=== PATIENT | female | born 2000 | race Caucasian/White ===

== ENCOUNTER 2022-10-23 02:07 | Emergency (ER) | payer OTHER ==
--- OUTSIDE RECORDS SUMMARY | 2022-10-23 02:20 | XMS REPORT | Continuity of Care Document ---
:2000 Author Organization [facility] t Address [address] [place] [address]. [address] [place] [address] Care Team Providers Name Role Phone KATE BAUMAN Primary Care Physician Unavailable Sera Attending Clinician Unavailable Doctor Unassigned, [place] Attending Clinician Unavailable KATE BAUMAN Attending Clinician Unavailable Kate Kennedy Attending Clinician Visit, Kerrie Nurse Attending Clinician Unavailable Jeronimo, Kerrie Attending Clinician Unavailable Estefania Nicholson Attending Clinician G_Pappas Admitting Clinician Unavailable Payers Payer Name Policy Type Policy Number Effective Date Expiration Date Marjorie luis [facility] [id number] 2016 [facility] 00:00:00 (MEDICAID HMO) [place]ICAID [place] [id number] 2021 00:00:00 MEDICAID PENDING PENDING 2021 00:00:00 Problems Condition Condition Condition Status Onset Resolution Last Treating Co mments Source Name Details Category Date Date Treatment Clinician Date - - Problem Active M [facility] induced induced 8-02 da hypertensi Hypertensi 00:00: Me dical on on 00 Group 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 Address in PP Maternal Maternal Disease Active 2020-05 Overview: Un cindy rubella rubella 2-30 Formattin ity o f with with 00:00: g of this [place] delivery delivery 00 note Medica l might be Branch different from the original. Address in PP Supervisio Supervisio Disease Active 2020-05 U nivers n of high n of high 2-29 ity of risk risk 00:00: [place] , , 00 Me dical antepartum antepartum Br anch Primigravi Primigravi Disease Active 2020-05 U nivers da in da in 2-29 ity of first first 00:00: [place] trimester trimester 00 [facility] Branch Obesity in Obesity in Disease Active 2020-05 U nivers 2- ity of 00:00: [place] 00 Medical Branch BMI BMI Disease Active 2020-05 Univers 40.0-44.9, 40.0-44.9, 2-29 it y of adult adult 00:00: [place] 00 Medical Branch Vitamin D Vitamin D Disease Active Uni vers deficiency deficiency 5-17 it y of 00:00: [place] 00 Medical Branch Low serum Low serum Disease Active Uni vers IgA for IgA for 5-17 ity of age age 00:00: [place] 00 Medical Branch Pre-existi Pre-existi Problem Active [facility] ng type 2 ng Type 2 da diabetes Diabetes Medica l mellitus Mellitus Group in in Rubella Rubella Problem Active [place] non-immune Non-immune da Medical Group 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 Allergies, Adverse Reactions, Alerts Allergy Allergy Status Severity Reaction(s) Onset Inactive Treating Comm ents Source Name Type Date Date Clinician PENICILL DRUG Active Med Rash Univers IN INGREDI 2- ity of 00:00: [place] 00 Medical Branch Penicill Propensi Active Rash Univer s in ty to 2-11 ity of adverse 00:00: [place] reaction 00 Medical s Branch PENICILL Allergy Active Hives [place] INS to da substanc Medical e Group Social History Social Habit Start Date Stop Date Quantity Comments Source ASSERTION 2021-03-31 [facility] 00:00:00 [facility] Branch Exposure to Not sure [facility] SARS-CoV-2 (event) Medica l Branch Alcohol intake 2021-06-02 2021-06-02 0 /d [facility] 00:00:00 00:00:00 Medical Branch Tobacco use and 2021-05-10 2021-05-10 Never used [facility] exposure 00:00:00 00:00:00 Medical Branch Sex Assigned At 2000 2001 [facility] 00:00:00 00:00:00 Medical Branch Smoking Status Start Date Stop Date Source Never Smoker [facility] Medications Ordered Filled Start Stop Current Ordering Indication Dosage Frequency Signature Comments Components Source Medication Medication Date Date Medication? Clinician (SIG) Name Name No known No Univers medications 1-21 ity of 10:05: [place] 12 Medical Branch Yes [id number] 1{packe Take 1 Univers vit 1-21 t} Packet by ity of 33-iron-fol 00:00: mouth [place] ic-dha 00 daily. Medical (SELECT-OB Branch + DHA) 29 mg iron-1 mg -250 mg combo pack Yes [id number] 1{packe Take 1 Univers vit 1-21 t} Packet by ity of 33-iron-fol 00:00: mouth [place] ic-dha 00 daily. Medical (SELECT-OB Branch + DHA) 29 mg iron-1 mg -250 mg combo pack Blood-Gluco Yes [id number] Use as Univers se Meter 1-04 directed ity of (FREESTYLE 00:00: [place] FREEDOM 00 Medical LITE) Kit Branch blood sugar Yes [id number] Use as Univers diagnostic 1-04 directed ity o f (FREESTYLE 00:00: [place] LITE 00 Medical STRIPS) Branch strip lancets 17 Yes [id number] Use as U nivers gauge Misc 1-04 directed ity o f 00:00: [place] 00 Medical Branch Blood-Gluco Yes [id number] Use as Univers se Meter 1-04 directed ity of (FREESTYLE 00:00: [place] FREEDOM 00 Medical LITE) Kit Branch blood sugar Yes [id number] Use as Univers diagnostic 1-04 directed ity o f (FREESTYLE 00:00: [place] LITE 00 Medical STRIPS) Branch strip lancets 17 Yes [id number] Use as U nivers gauge Misc 1-04 directed ity o f 00:00: [place] 00 Medical Branch Blood-Gluco Yes [id number] Use as Univers se Meter 1-04 directed ity of (FREESTYLE 00:00: [place] FREEDOM 00 Medical LITE) Kit Branch blood sugar Yes [id number] Use as Univers diagnostic 1-04 directed ity o f (FREESTYLE 00:00: [place] LITE 00 Medical STRIPS) Branch strip lancets 17 Yes [id number] Use as U nivers gauge Misc 1-04 directed ity o f 00:00: [place] Medical Branch Blood-Gluco Yes [id number] Use as Univers se Meter 1- directed ity of (FREESTYLE 00:00: [place] FREEDOM 00 Medical LITE) Kit Branch blood sugar Yes [id number] Use as Univers diagnostic 05-16 directed ity o f (FREESTYLE 00:00: [place] LITE 00 Medical STRIPS) Branch strip lancets 17 Yes [id number] Use as U nivers gauge Misc 05-16 directed ity o f 00:00: [place] Medical Branch Blood-Gluco Yes [id number] Use as Univers se Meter 05-16 directed ity of (FREESTYLE 00:00: [place] FREEDOM 00 Medical LITE) Kit Branch blood sugar Yes [id number] Use as Univers diagnostic 05-16 directed ity o f (FREESTYLE 00:00: [place] LITE 00 Medical STRIPS) Branch strip lancets Yes [id number] Use as U nivers gauge Misc 05-16 directed ity o f 00:00: [place] Medical Branch acetaminoph acetaminoph No acetaminop [place] en 300 en 300 hen 300 da mg-codeine mg-codeine mg-codeine Medical 30 mg 30 mg 30 mg Group tablet TAKE tablet TAKE tablet 1 TO 2 1 TO 2 TAKE 1 TO TABLETS BY TABLETS BY 2 TABLETS MOUTH EVERY MOUTH EVERY BY MOUTH 6 HOURS 6 HOURS EVERY 6 NEEDED FOR NEEDED FOR HOURS PAIN PAIN NEEDED FOR PAIN Ferate 240 Ferate 240 No Ferate 240 [place] mg (27 mg mg (27 mg mg (27 mg da iron) iron) iron) Medical tablet TAKE tablet TAKE tablet Group 1 TABLET BY 1 TABLET BY TAKE 1 MOUTH EVERY MOUTH EVERY TABLET BY DAY DAY MOUTH EVERY DAY FreeStyle FreeStyle No FreeStyle [place] Lancets 28 Lancets 28 Lancets 28 da gauge CHECK gauge CHECK gauge Medical BLOOD BLOOD CHECK Group GLUCOSE GLUCOSE BLOOD FOUR TIMES FOUR TIMES GLUCOSE DAILY DAILY FOUR TIMES DAILY FreeStyle FreeStyle No FreeStyle [place] Lite Meter Lite Meter Lite Meter da kit USE kit USE kit USE Medical DIRECTED DIRECTED DIRECTED Vikki up FreeStyle FreeStyle No FreeStyle [place] Lite Strips Lite Strips Lite d a CHECK BLOOD CHECK BLOOD Strips Medical GLUCOSE GLUCOSE CHECK Group FOUR TIMES FOUR TIMES BLOOD DAILY DAILY GLUCOSE FOUR TIMES DAILY ibuprofen ibuprofen No ibuprofen [place] 800 mg 800 mg 800 mg da tablet TAKE tablet TAKE tablet Medical 1 TABLET BY 1 TABLET BY TAKE 1 Group MOUTH EVERY MOUTH EVERY TABLET BY 6 HOURS 6 HOURS MOUTH NEEDED FOR NEEDED FOR EVERY 6 PAIN PAIN HOURS NEEDED FOR PAIN Prena1 Chew Prena1 Chew No Prena1 [place] Chew da Medical Group Immunizations Ordered Filled Immunization Date Status Comments [facility] e Immunization Name Name Influenza Virus 2017-04-22 Completed Universit y of Vaccine Quad IM 3+ 00:00:00 [facility] Influenza Virus 2017-04-22 Completed Universit y of Vaccine Quad IM 3+ 00:00:00 [facility] Influenza Virus 2017-04-22 Completed Universit y of Vaccine Quad IM 3+ 00:00:00 [facility] Influenza Virus 2017-04-22 Completed Universit y of Vaccine Quad IM 3+ 00:00:00 [facility] Influenza Virus 2017-04-22 Completed Universit y of Vaccine Quad IM 3+ 00:00:00 [facility] Influenza Virus 2017-04-22 Completed Universit y of Vaccine Quad IM 3+ 00:00:00 [facility] Influenza Virus 2016-02-08 Completed Universit y of Vaccine Quad IM 3+ 00:00:00 [facility] Influenza Virus 2016-02-08 Completed Universit y of Vaccine Quad IM 3+ 00:00:00 [facility] Influenza Virus 2016-02-08 Completed Universit y of Vaccine Quad IM 3+ 00:00:00 [facility] Influenza Virus 2016-02-08 Completed Universit y of Vaccine Quad IM 3+ 00:00:00 [facility] Influenza Virus 2016-02-08 Completed Universit y of Vaccine Quad IM 3+ 00:00:00 [facility] Influenza Virus 2016-02-08 Completed Universit y of Vaccine Quad IM 3+ 00:00:00 [facility] Vital Signs Vital Name Observation Time Observation Value Comments Source BP Diastolic 2022-01-05 00:00:00 99 mm[Hg] [facility] Height 2022-01-05 00:00:00 67 [in_i] [facility] BMI (Body Mass 2022-01-05 00:00:00 37.2 kg/m2 [facility] Index) Group BP Systolic 2022-01-05 00:00:00 141 mm[Hg] [facility] Body Weight 2022-01-05 00:00:00 237.5 [lb_av] [facility] BP Diastolic 2021-12-12 00:00:00 95 mm[Hg] [facility] Height 2021-12-12 00:00:00 67 [in_i] [facility] BMI (Body Mass 2021-12-12 00:00:00 41 kg/m2 [facility] Medical Index) Group BP Systolic 2021-12-12 00:00:00 152 mm[Hg] [facility] Body Weight 2021-12-12 00:00:00 261.8 [lb_av] [facility] BP Diastolic 2021-12-05 00:00:00 90 mm[Hg] [facility] Height 2021-12-05 00:00:00 67 [in_i] [facility] BMI (Body Mass 2021-12-05 00:00:00 40.7 kg/m2 [facility] Medical Index) Group BP Systolic 2021-12-05 00:00:00 141 mm[Hg] [facility] Body Weight 2021-12-05 00:00:00 260.1 [lb_av] [facility] BP Diastolic 2021-11-21 00:00:00 90 mm[Hg] [facility] Height 2021-11-21 00:00:00 67 [in_i] [facility] BP Systolic 2021-11-21 00:00:00 139 mm[Hg] [facility] Body Weight 2021-11-21 00:00:00 225.4 [lb_av] [facility] BP Diastolic 2021-11-07 00:00:00 93 mm[Hg] [facility] Height 2021-11-07 00:00:00 67 [in_i] [facility] BP Systolic 2021-11-07 00:00:00 137 mm[Hg] [facility] BP Diastolic 2021-10-10 00:00:00 76 mm[Hg] [facility] Height 2021-10-10 00:00:00 67 [in_i] [facility] BMI (Body Mass 2021-10-10 00:00:00 39.6 kg/m2 [facility] apprentice painter hand Medical Index) Group BP Systolic 2021-10-10 00:00:00 123 mm[Hg] [facility] Body Weight 2021-10-10 00:00:00 253 [lb_av] [facility] BP Diastolic 2021-09-12 00:00:00 83 mm[Hg] [facility] Height 2021-09-12 00:00:00 67 [in_i] [facility] BMI (Body Mass 2021-09-12 00:00:00 39.3 kg/m2 [facility] apprentice painter hand Medical Index) Group BP Systolic 2021-09-12 00:00:00 131 mm[Hg] [facility] Body Weight 2021-09-12 00:00:00 251 [lb_av] [facility] BP Diastolic 2021-08-15 00:00:00 86 mm[Hg] [facility] Height 2021-08-15 00:00:00 67 [in_i] [facility] BMI (Body Mass 2021-08-15 00:00:00 39.6 kg/m2 [facility] apprentice painter hand Medical Index) Group BP Systolic 2021-08-15 00:00:00 141 mm[Hg] [facility] Body Weight 2021-08-15 00:00:00 252.8 [lb_av] [facility] Height 2021-07-27 00:00:00 67 [in_i] [facility] BMI (Body Mass 2021-07-27 00:00:00 39.5 kg/m2 [facility] apprentice painter hand Medical Index) Group Body Weight 2021-07-27 00:00:00 252.2 [lb_av] [facility] BP Diastolic 2021-07-18 00:00:00 81 mm[Hg] [facility] Height 2021-07-18 00:00:00 67 [in_i] [facility] BMI (Body Mass 2021-07-18 00:00:00 40.1 kg/m2 [facility] apprentice painter hand Medical Index) Group BP Systolic 2021-07-18 00:00:00 137 mm[Hg] [facility] Body Weight 2021-07-18 00:00:00 256.2 [lb_av] [facility] BP Diastolic 2021-07-06 00:00:00 87 mm[Hg] [facility] Height 2021-07-06 00:00:00 67 [in_i] [facility] BMI (Body Mass 2021-07-06 00:00:00 40.2 kg/m2 [facility] apprentice painter hand Medical Index) Group BP Systolic 2021-07-06 00:00:00 142 mm[Hg] [facility] Body Weight 2021-07-06 00:00:00 256.7 [lb_av] [facility] Systolic blood 2021-06-02 15:04:00 118 mm[Hg] Univer sity of pressure [facility] Diastolic blood 2021-06-02 15:04:00 78 mm[Hg] Unive rsity of pressure [facility] Heart rate 2021-06-02 15:04:00 90 /min [facility] Body temperature 2021-06-02 15:04:00 36.11 [facility] 2021-06-02 15:04:00 16 /min [facility] height 2021-06-02 15:04:00 170.2 cm [facility] Body weight 2021-06-02 15:04:00 119.477 kg [facility] BMI 2021-06-02 15:04:00 41.25 kg/m2 [facility] Body mass index 2021-06-02 15:04:00 98.51 % Unive rsity of (BMI) [Percentile] [facility] [place] Per age and sex Branch Systolic blood 2021-05-19 15:53:00 138 mm[Hg] Univer sity of pressure [facility] Diastolic blood 2021-05-19 15:53:00 82 mm[Hg] Unive rsity of pressure [facility] Heart rate 2021-05-19 15:53:00 104 /min [facility] Body temperature 2021-05-19 15:53:00 36.11 Laura [facility] Respiratory rate 2021-05-19 15:53:00 18 /min [facility] Body height 2021-05-19 15:53:00 170.2 cm [facility] Body weight 2021-05-19 15:53:00 119.523 kg [facility] BMI 2021-05-19 15:53:00 41.27 kg/m2 [facility] Body mass index 2021-05-19 15:53:00 98.52 % [facility] (BMI) [Percentile] [facility] [place] Per age and sex Branch Procedures Procedure Date / Time Performing Clinician Source Performed US(FBP)W/0 NON STRESS 2021-12[facility]12 [facility], [facility], limited 2021-12-05 00:00:00 [facility] US, obstetric, limited 2021-11-07 00:00:00 [facility] ULTRASOUND REPEAT 2021-10-10 00:00:00 [facility] US, obstetric, limited 2021-09-12 00:00:00 [facility] ULTRASOUND, 2021-08-15 00:00:00 [facility] Medical UTERUS REAL TIME WITH Group IMAGE DOC, AND MATERNAL EVAL PLUS DETAILED ANATOMIC EXAMINATION, TRANSABDOMINAL APPROACH; SINGLE OR FIRST GESTATION US, obstetric, limited 2021-07-27 00:00:00 [facility] US, obstetric, limited 2021-07-06 00:00:00 [facility] AUTHORIZATION FOR RELEASE 2021-06-26 06:01:00 Doctor Unassigned, [facility] [place] [facility] POCT URINALYSIS 2021-06-02 15:05:00 Kate Bauman [facility] 3 HR GLUCOSE TOLERANCE 2021-05-15 17:15:00 [facility] GLUCOSE TOLER[facility] 2021-05-15 16:23:00 Kate Bauman [facility] [place] TEST Medical Branch 1 HR GLUCOSE TOLERANCE 2021-05-15 15:15:00 [facility] GLU[facility]SE FAST[facility] 2021-05-15 14:14:00 Kate Bauman [facility] 3 HR GLUCOSE TOLERANCE 2021-05-15 14:14:00 [facility] Plan of Care Planned Activity Planned Date Details Comments Source Diagnostic Test 2022-01-05 urinalysis, [facility] Me dical Pending 00:00:00 dipstick [code = Group urinalysis, dipstick] Encounters Start End Encounter Admission Attending Care Care Encounter Source Date/Time Date/Time Type Type Clinicians Facility Department ID 2022-01-05 2022-01-05 Outpatient G_Pappas MM[facility] MMG [id number] [place] 00:00:00 00:00:00 0826 Medical Group 2022-01-05 2022-01-05 Derrick RODRIGUEZ [place] - [id number] Jeff hansengoshivani 00:00:00 00:00:00 Discovery yuriy Rossi MD: [address] [place] [phone] , Ph. [phone] 2021-12-18 2021-12-18 Outpatient G_Pappas MMG MMG [id number] [place] 00:00:00 00:00:00 0808 Medical Group 2021-12-12 2021-12-12 Outpatient G_Pappas MMG MMG [id number] [place] 00:00:00 00:00:00 0802 [facility] Group 2021-12-12 2021-12-12 Derrick RODRIGUEZ [place] - [id number] Jeff atagoshivani 00:00:00 00:00:00 Discovery yuriy Rossi MD: [address] [place] [phone] , Ph. [phone] 2021-12-05 2021-12-05 Outpatient G_Pappas MMG MMG [id number] [place] 02:04:00 02:04:00 0726 [facility] Medical Group 2021-12-05 2021-12-05 Derrick RODRIGUEZ [place] - [id number] M at[facility]or 00:00:00 00:00:00 Discovery yuriy Rossi MD: [address] [place] [phone] , Ph. [phone] 2021-11-21 2021-11-21 Outpatient G_Pappas MM MM [id number] [place] 03:11:00 03:11:00 0712 [facility] 2021-11-21 2021-11-21 Derrick HERRMANN [place] - [id number] M at[facility] 00:00:00 00:00:00 Discovery yuriy Rossi MD: [address] [place] [phone] , Ph. [phone] 2021-11-07 2021-11-07 Outpatient G_Pappas MM MM [id number] [place] 02:20:00 02:20:00 0628 [facility] 2021-11-07 2021-11-07 Outpatient G_Pappas MMG MMG [id number] [place] 02:20:00 02:20:00 0701 [facility] 2021-11-07 2021-11-07 Derrick HERRMANN [place] - [id number] M at[place]or 00:00:00 00:00:00 Discovery yuriy Rossi MD: [address] [place] [phone] , Ph. [phone] 2021-10-10 2021-10-10 [place] [id number] [place] 02:59:00 02:59:00 0531 [facility] 2021-10-10 2021-10-10 Derrick HERRMANN [place] - [id number] M at[facility]or 00:00:00 00:00:00 Discovery yuriy Rossi MD: [address] [place] [phone] , Ph. [phone] 2021-10-05 2021-10-05 Outpatient G_Pappas MMG MMG [id number] [place] 03:57:00 03:57:00 0526 [facility] 2021-09-12 2021-09-12 Outpatient G_Pappas MMG MMG [id number] [place] 10:54:00 10:54:00 0503 [facility] 2021-09-12 2021-09-12 Outpatient G_Pappas MMG MMG [id number] [place] 10:54:00 10:54:00 0504 [facility] 2021-09-12 2021-09-12 Derrick [facility] [place] - [id number] M atagor 00:00:00 00:00:00 Discovery yuriy Rossi MD: [address] [place] [phone] , Ph. [phone] 2021-09-06 2021-09-06 [place] [id number] [place] 10:58:00 10:58:00 0427 Medical Group 2021-08-15 2021-08-15 [place] [id number] [place] 10:32:00 10:32:00 0405 Medical Group 2021-08-15 2021-08-15 Derrick [facility] [place] - [id number] M atagor 00:00:00 00:00:00 Discovery yuriy Rossi MD: [address] [place] [phone] , Ph. [phone] 2021-08-11 2021-08-11 [place] [id number] [place] 04:10:00 04:10:00 0401 Medical Group 2021-07-27 2021-07-27 Outpatient G_Pappas MMG MMG [id number] [place] 11:36:00 11:36:00 0317 Medical Group 2021-07-27 2021-07-27 Sherry [facility] [place] - [id number] atagor 00:00:00 00:00:00 Discovery yuriy Andrade [facility]: [address] [address] , Ph. [phone] 2021-07-18 2021-07-18 Outpatient G_Pappas MMG [facility] [id number] [place] 11:28:00 11:28:00 0308 [facility] 2021-07-18 2021-07-18 Sherry [facility] [place] - [id number] M atagor 00:00:00 00:00:00 Discovery [facility]: [address] [address] , Ph. [phone] 2021-07-12 2021-07-12 [place] [id number] [place] 10:16:00 10:16:00 0302 [facility] 2021-07-06 2021-07-06 [place] [id number] [place] 11:08:00 11:08:00 0224 [facility] 2021-07-06 2021-07-06 Sherry [facility] [place] - [id number] [facility]agor 00:00:00 00:00:00 Discovery [facility]: [address] [address] , Ph. [phone] 2021-07-04 2021-07-04 [place] [id number] [place] 05:31:00 05:31:00 0222 [facility] 2021-06-26 2021-06-26 Orders Doctor JOY [id number] Univers 00:00:00 00:00:00 Only Unassigned, CHRISTAL [id number] ity of [place] [facility] [id number] Tomi as [id number] [place] [address] Branch 2021-06-23 2021-06-23 Outpatient G_Pappas MMG MMG [id number] [place] 11:00:00 11:00:00 0211 Medical Group 2021-06-19 2021-06-19 Outpatient Shivani BAUMAN [facility] [id number] Univers 13:00:00 13:00:00 SAMICEFERINONDA ity o [facility] 2021-06-14 2021-06-14 Outpatient P [facility] [id number] Univers 14:00:00 14:00:00 ity [facility] 2021-06-08 2021-06-08 Outpatient Shivani BAUMAN [facility] [id number] Univers 13:15:00 13:15:00 CLARICEA fuentes o [facility] 2021-06-07 2021-06-07 Outpatient Shivani BAUMAN [facility] [id number] Univers 15:30:00 15:30:00 SAMIVAUGHNA alexcolette o [facility] 2021-06-07 2021-06-07 Outpatient Shivani BAUMAN [facility] [id number] Univers 15:30:00 15:30:00 SAMIVAUGHNA alexcolette o [facility] 2021-06-07 2021-06-07 Outpatient Shivani BAUMAN [facility] [id number] Univers 15:30:00 15:30:00 SAMICEFERINONDA ity o [facility] 2021-06-02 2021-06-02 [facility] [id number] Univers 09:00:00 09:51:12 Kate R DATA ENTRY ASSOCIATE [id number] ity of Visit [facility] [id number] Tomi as MATERNAL [id number] [facility] CH[facility] [address] [place] [address] 2021-06-02 2021-06-02 Outpatient Shivani BAUMAN [facility] [id number] Univers 09:00:00 09:51:12 ROSCEFERINONDA ity o [facility] 2021-05-19 2021-05-19 Outpatient Shivani BAUMAN [facility] [id number] Univers 10:00:00 10:26:01 CLARICEA ity o [facility] 2021-05-19 2021-05-19 Nurse Visit, Kerrie Nurse [facility] [id number] Univers 10:00:00 10:26:01 Visit Desmond Baumannatalie Parrish DATA ENTRY ASSOCIATE [id number] ity of [facility] [id number] Tomi as MATERNAL [id number] [facility] [address] [place] [address] 2021-05-17 2021-05-17 Telephone Pieter [facility] [id number] Univers 00:00:00 00:00:00 Kate Shivani DATA ENTRY ASSOCIATE [id number] ity of REGIONAL [id number] Tomi as MATERNAL [id number] [facility] [address] [place] [address] 2021-05-16 2021-05-16 Telephone Bauman [facility] [id number] Univers 00:00:00 00:00:00 Kate Shivani DATA ENTRY ASSOCIATE [id number] ity of [facility] [id number] Tomi as MATERNAL [phone] [facility] [address] [place] [address] 2021-05-15 2021-05-15 Guide Tour Lab, Kerrie [facility] [id number]. [id number] Univers 08:00:00 08:35:11 Visit Desmond Baumanleolesli Shivani DATA ENTRY ASSOCIATE 350.1.13.10 ity of [facility] [id number] Tomi as MATERNAL [phone] [facility] [address] [place] [address] 2021-05-15 2021-05-15 Outpatient Shivani BAUMAN [facility] [id number] Univers 08:00:00 08:35:11 KATE parker donna [facility] 2021-05-15 2021-05-15 Outpatient Shivani BAUMAN [facility] [id number] Univers 08:00:00 08:00:00 KATE dill o donna [facility] 2021-05-11 2021-05-11 Telephone Pieter [facility] [id number] Univers 00:00:00 00:00:00 Desmondnatalie R DATA ENTRY ASSOCIATE 350.1.13.10 ity of REGIONAL [id number] Tomi as MATERNAL [phone] [facility] [address] [place] [address] 2021-05-11 2021-05-11 Telephone Pieter MATABITHA [id number] Univers 00:00:00 00:00:00 Desmondleoa R DATA ENTRY ASSOCIATE 350.1.13.10 ity of REGIONAL [id number] Tomi as MATERNAL [phone] [facility] [address] [place] [address] 2021-05-10 2021-05-10 Outpatient Shivani RAHMANE [facility] [id number] Univers 09:00:00 15:24:50 KATE dill o donan [facility] 2021-05-10 2021-05-10 Initial Bauman, Kate Parrish [facility] 1.2.840 .[id number] Univers 09:00:00 15:24:50 Estefania Almanzar DATA ENTRY ASSOCIATE 350.1.13.10 ity of Visit [facility] [id number] Tomi as MATERNAL [phone] [facility] & [address] 2021-05-10 2021-05-10 Outpatient Shivani BAUMAN [facility] [id number] Univers 09:00:00 15:24:50 KATE parker donna [facility] 2021-05-10 2021-05-10 Outpatient Shivani RAHMANE [facility] [id number] Univers 08:30:00 14:36:20 KATE parker donna [facility] 2021-05-10 2021-05-10 Outpatient Shivani BAUMAN [facility] [id number] Univers 08:30:00 08:30:00 DESMONDNATALIE parker [facility] 2021-05-10 2021-05-10 Orders Doctor JOY [id number] Univers 00:00:00 00:00:00 Only Unassigned, CHRISTAL 350.1.13.10 ity of [place] [facility] [id number] Tomi as [phone] [facility] [address] Results Test Description Test Time Test Comments Results Result Comments Source Urinalysis macro (dipstick) panel - Urine 2022-01-05 10:53:0 3 Test Item Value Reference Range Interpretation Comme nts Leukocytes (test code = Leukocytes) Large Nitrite (test code = Nitrite) negative Urobilinogen (test code = Urobilinogen) 1 Protein (test code = Protein) 30 pH (test code = pH) 5.5 Blood (test code = Blood) Large Specific [place] (test code = Specific [place]) 1.020 Ketone (test code = Ketone) Negative Bilirubin (test code = Bilirubin) Negative Glucose (test code = Glucose) Negative Appearance (test code = Appearance) Clear Color (test code = Color) Yellow [facility] W Auto Differential panel - [id number] 04:10:00 Test Item Value Reference Range Interpretation Comments white blood count (test code = 9.9 K/uL 4.0-11.5 white blood count) red blood count (test code = red 3.23 M/uL 3.80-5.20 L blood count) hemoglobin (test code = 7.1 g/dL 10.5-15.7 L hemoglobin) hematocrit (test code = 24.0 % 34.0-50.0 L hematocrit) MCV [Entitic volume] (test code = 74.3 fL 86.0-100.0 L 71414-4) mean corpuscular hemoglobin (test 22.0 pg 26.2-33.4 L code = mean corpuscular hemoglobin) mean corpuscular HGB conc (test 29.6 g/dL 30.0-34.0 L code = mean corpuscular HGB conc) red cell distribution width (test 16.7 % 12.0-15.5 H code = red cell distribution width) platelet count (test code = 168 K/uL 165-450 platelet count) mean platelet volume (test code = 10.6 fL 9.4-12.6 mean platelet volume) Segmented neutrophils/100 80.1 % 44.4-80.1 leukocytes in Blood (test code = 98331-6) Immature granulocytes [#/volume] 0.04 K/uL 0.00-0.03 H in Blood (test code = 31893-4) lymphocyte% (test code = 10.1 % 10.0-50.0 lymphocyte%) mono % (test code = mono %) 8.9 % 3.6-12.0 eos % (test code = eos %) 0.4 % 0.0-5.4 basophil % (test code = basophil 0.1 % 0.1-1.2 %) Band form neutrophils [#/volume] 7.93 K/uL 1.56-6.13 H in Blood (test code = 21355-4) Lymphocytes [#/volume] in Specimen 1.00 K/uL 1.18-3.74 L by Automated count (test code = 86545-2) mono # (test code = mono #) 0.88 K/uL 0.24-0.86 H eos # (test code = eos #) 0.04 K/uL 0.04-0.36 basophil # (test code = basophil 0.01 K/uL 0.01-0.08 #) NRBC% (test code = NRBC%) 0 /100 WBC 0-0.2 NRBC# (test code = NRBC#) 0 K/uL [facility] W Auto Differential panel - [id number] 04:12:00 Test Item Value Reference Range Interpretation Comments white blood count (test code = 11.3 K/uL 4.0-11.5 white blood count) red blood count (test code = red 4.02 M/uL 3.80-5.20 blood count) hemoglobin (test code = 8.8 g/dL 10.5-15.7 L hemoglobin) hematocrit (test code = 29.0 % 34.0-50.0 L hematocrit) MCV [Entitic volume] (test code = 72.1 fL 86.0-100.0 L 79038-9) mean corpuscular hemoglobin (test 21.9 pg 26.2-33.4 L code = mean corpuscular hemoglobin) mean corpuscular HGB conc (test 30.3 g/dL 30.0-34.0 code = mean corpuscular HGB conc) red cell distribution width (test 16.8 % 12.0-15.5 H code = red cell distribution width) platelet count (test code = 202 K/uL 165-450 platelet count) mean platelet volume (test code = 10.2 fL 9.4-12.6 mean platelet volume) Segmented neutrophils/100 76.4 % 44.4-80.1 leukocytes in Blood (test code = 97395-5) Immature granulocytes [#/volume] 0.08 K/uL 0.00-0.03 H in Blood (test code = 25049-9) lymphocyte% (test code = 12.0 % 10.0-50.0 lymphocyte%) mono % (test code = mono %) 10.0 % 3.6-12.0 eos % (test code = eos %) 0.7 % 0.0-5.4 basophil % (test code = basophil 0.2 % 0.1-1.2 %) Band form neutrophils [#/volume] 8.63 K/uL 1.56-6.13 H in Blood (test code = 02584-1) Lymphocytes [#/volume] in Specimen 1.35 K/uL 1.18-3.74 by Automated count (test code = 72224-0) mono # (test code = mono #) 1.13 K/uL 0.24-0.86 H eos # (test code = eos #) 0.08 K/uL 0.04-0.36 basophil # (test code = basophil 0.02 K/uL 0.01-0.08 #) NRBC% (test code = NRBC%) 0 /100 WBC 0-0.2 NRBC# (test code = NRBC#) 0 K/uL [facility]Different[facility], method unspecified - [id number] 04:12:00NeutrophilsBandLymphocyteAtypical LymphMonocyteEosinophilBasophilMetamyelocyteMyelocytePromyelocyteBlastsNucleated Red Blood CellDifferential CommentAbs Neutrophil Count (Man)Abs Lymph Count (Man)Abs Monocyte Count (Man)Abs Eosinophil Count (Man)Abs Basophil Count (Man)Platelet EstimatePlatelet Morphol ogyHypochromasiaPoikilocytosisAnisocytosisMacrocytosisSchistocytesTear Drop CellsOvalocytesStomatocyteToxic GranulationHypersegmented PolysRouleauToxic VacuolationMississippi State HospitalGlucose [Mass/volume] in Serum or Plasma 2021-12-14 04:12:00 Test Item Value Reference Range Interpretation Comments Glucose [Mass/volume] in Serum or 82 mg/dL 74-106 Plasma (test code = 2345-7) [facility] HospitalComprehensive [facility] 2000 panel - Serum or Plasma 2021-12-14 04:12:00 Test Item Value Reference Range Interpretation Comments Glucose [Mass/volume] in Serum or 83 mg/dL 74-106 Plasma (test code = 2345-7) Urea nitrogen [Mass/volume] in 7 mg/dL 6-20 Serum or Plasma (test code = 3094-0) osmolality calculated,serum (test 264 mOsm/kg 280-300 L code = osmolality calculated,serum) creatinine (test code = 0.47 mg/dL 0.50-0.90 L creatinine) glomerular filtration rate (test >60.00 code = glomerular filtration rate) BUN/creatinine ratio (test code = 14.9 12.0-20.0 BUN/creatinine ratio) sodium level (test code = sodium 133 mmol/L 135-145 L level) potassium level (test code = 3.9 mmol/L 3.5-5.2 potassium level) chloride level (test code = 101 mmol/L 98-108 chloride level) CO2 (test code = CO2) 19 mmol/L 21-32 L anion gap (test code = anion gap) 16.9 mEq/L 12.0-20.0 calcium level (test code = 9.1 mg/dL 8.6-10.0 calcium level) total protein (test code = total 6.2 g/dL 6.6-8.7 L protein) albumin (test code = albumin) 3.3 g/dL 3.5-5.2 L globulin (test code = globulin) 2.9 g/dL 1.5-4.5 A/G ratio (test code = A/G ratio) 1.1 >1.0 bilirubin,total (test code = 0.3 mg/dL 0.0-1.2 bilirubin,total) AST/SGOT (test code = AST/SGOT) 12 U/L 15-32 L Alanine aminotransferase 10 U/L 0-33 [Enzymatic activity/volume] in Serum or Plasma (test code = 1742-6) Alkaline phosphatase [Enzymatic 175 U/L 35-105 H activity/volume] in Serum or Plasma (test code = 6768-6) [facility] HospitalUrate [Mass/volume] in [id number] 04:12:00 Test Item Value Reference Range Interpretation Comments uric acid (test code = uric acid) 4.6 mg/dL 2.4-5.7 [facility] HospitalD-Lactate [Moles/volume] in Serum or [id number] 04:12:00 Test Item Value Reference Range Interpretation Comments LDH (test code = LDH) 178 U/L 135-214 [facility] HospitalBlood type and Indirect antibody screen panel - Blood 2021-12-14 04:12:00 Test Item Value Reference Range Interpretation Comments Rh [Type] in Blood (test code = 4+ 12074-5) ABO and Rh group panel - Blood B positive (test code = 36699-0) [facility] HospitalReagin Ab [Presence] in Serum by [id number] 04:12:00 Test Item Value Reference Range Interpretation Comments Reagin Ab [Presence] in Serum by nonreactive nonreactive RPR (test code = 29834-8) [facility] HospitalHepatitis B virus surface Ag [Presence] in Serum 2021-12-14 04:12:00 Test Item Value Reference Range Interpretation Comments .hepatitis B surface antigen (test negative negative code = .hepatitis B surface antigen) [facility] HospitalUrinalysis macro (dipstick) panel - [id number] 11:30:47 Test Item Value Reference Range Interpretation Comments Leukocytes (test code = Leukocytes) Small Nitrite (test code = Nitrite) negative Urobilinogen (test code = .2 Urobilinogen) Protein (test code = Protein) Negative pH (test code = pH) 7.5 Blood (test code = Blood) Negative Specific [place] (test code = 1.020 Specific [place]) Ketone (test code = Ketone) Negative Bilirubin (test code = Bilirubin) Negative Glucose (test code = Glucose) Negative Appearance (test code = Appearance) Clear Color (test code = Color) Yellow [facility] HospitalUrinalysis macro (dipstick) panel - [id number] 11:30:47 Test Item Value Reference Range Interpretation Comments Leukocytes (test code = Leukocytes) Small Nitrite (test code = Nitrite) negative Urobilinogen (test code = .2 Urobilinogen) Protein (test code = Protein) Negative pH (test code = pH) 7.5 Blood (test code = Blood) Negative Specific [place] (test code = 1.020 Specific [place]) Ketone (test code = Ketone) Negative Bilirubin (test code = Bilirubin) Negative Glucose (test code = Glucose) Negative Appearance (test code = Appearance) Clear Color (test code = Color) Yellow [facility] GroupGlucose [Mass/volume] in Capillary [id number] 11:20:33 Test Item Value Reference Range Interpretation Comments GLU (test code = GLU) 77 [facility] GroupGlucose [Mass/volume] in Capillary [id number] 11:20:33 Test Item Value Reference Range Interpretation Comments GLU (test code = GLU) 77 [facility] GroupGlucose [Mass/volume] in Capillary [id number] 13:30:32 Test Item Value Reference Range Interpretation Comments GLU (test code = GLU) 95 [facility] GroupGlucose [Mass/volume] in Capillary [id number] 13:30:32 Test Item Value Reference Range Interpretation Comments GLU (test code = GLU) 95 [facility] GroupGlucose [Mass/volume] in Capillary [id number] 13:30:32 Test Item Value Reference Range Interpretation Comments GLU (test code = GLU) 95 [facility] HospitalUrinalysis macro (dipstick) panel - [id number] 13:13:43 Test Item Value Reference Range Interpretation Comments Leukocytes (test code = Leukocytes) Small Nitrite (test code = Nitrite) negative Urobilinogen (test code = .2 Urobilinogen) Protein (test code = Protein) Negative pH (test code = pH) 6.0 Blood (test code = Blood) Negative Specific [place] (test code = 1.010 Specific [place]) Ketone (test code = Ketone) Negative Bilirubin (test code = Bilirubin) Negative Glucose (test code = Glucose) 250 Appearance (test code = Appearance) Clear Color (test code = Color) Yellow [facility] GroupUrinalysis macro (dipstick) panel - [id number] 13:13:43 Test Item Value Reference Range Interpretation Comments Leukocytes (test code = Leukocytes) Small Nitrite (test code = Nitrite) negative Urobilinogen (test code = .2 Urobilinogen) Protein (test code = Protein) Negative pH (test code = pH) 6.0 Blood (test code = Blood) Negative Specific [place] (test code = 1.010 Specific [place]) Ketone (test code = Ketone) Negative Bilirubin (test code = Bilirubin) Negative Glucose (test code = Glucose) 250 Appearance (test code = Appearance) Clear Color (test code = Color) Yellow [facility] GroupUrinalysis macro (dipstick) panel - [id number] 13:13:43 Test Item Value Reference Range Interpretation Comments Leukocytes (test code = Leukocytes) Small Nitrite (test code = Nitrite) negative Urobilinogen (test code = .2 Urobilinogen) Protein (test code = Protein) Negative pH (test code = pH) 6.0 Blood (test code = Blood) Negative Specific [place] (test code = 1.010 Specific [place]) Ketone (test code = Ketone) Negative Bilirubin (test code = Bilirubin) Negative Glucose (test code = Glucose) 250 Appearance (test code = Appearance) Clear Color (test code = Color) Yellow [facility] GroupHemoglobin A1c [Mass/volume] in [id number] 00:00:00 Test Item Value Reference Range Interpretation Comments Hemoglobin A1c [Mass/volume] in Blood 5.2 % 4.0-6.0 (test code = 07465-7) [facility] GroupHemoglobin A1c [Mass/volume] in [id number] 00:00:00 Test Item Value Reference Range Interpretation Comments Hemoglobin A1c [Mass/volume] in Blood 5.2 % 4.0-6.0 (test code = 24828-0) [facility] Groupculture, vaginal/rectal, streptococcus group [id number] 00:00:00 Test Item Value Reference Range Interpretation Comments group B strep (test code = group B positive A strep) [facility] Groupculture, vaginal/rectal, streptococcus group [id number] 00:00:00 Test Item Value Reference Range Interpretation Comments group B strep (test code = group B positive A strep) [facility] GroupUrinalysis macro (dipstick) panel - [id number] 14:51:28 Test Item Value Reference Range Interpretation Comments Leukocytes (test code = Leukocytes) Small Nitrite (test code = Nitrite) negative Urobilinogen (test code = .2 Urobilinogen) Protein (test code = Protein) Negative pH (test code = pH) 7.0 Blood (test code = Blood) Negative Specific [place] (test code = 1.010 Specific [place]) Ketone (test code = Ketone) Negative Bilirubin (test code = Bilirubin) Negative Glucose (test code = Glucose) Negative Appearance (test code = Appearance) Clear Color (test code = Color) Yellow [facility] GroupUrinalysis macro (dipstick) panel - [id number] 14:51:28 Test Item Value Reference Range Interpretation Comments Leukocytes (test code = Leukocytes) Small Nitrite (test code = Nitrite) negative Urobilinogen (test code = .2 Urobilinogen) Protein (test code = Protein) Negative pH (test code = pH) 7.0 Blood (test code = Blood) Negative Specific [place] (test code = 1.010 Specific [place]) Ketone (test code = Ketone) Negative Bilirubin (test code = Bilirubin) Negative Glucose (test code = Glucose) Negative Appearance (test code = Appearance) Clear Color (test code = Color) Yellow [facility] HospitalUrinalysis macro (dipstick) panel - [id number] 14:51:28 Test Item Value Reference Range Interpretation Comments Leukocytes (test code = Leukocytes) Small Nitrite (test code = Nitrite) negative Urobilinogen (test code = .2 Urobilinogen) Protein (test code = Protein) Negative pH (test code = pH) 7.0 Blood (test code = Blood) Negative Specific [place] (test code = 1.010 Specific [place]) Ketone (test code = Ketone) Negative Bilirubin (test code = Bilirubin) Negative Glucose (test code = Glucose) Negative Appearance (test code = Appearance) Clear Color (test code = Color) Yellow [facility] GroupGlucose [Mass/volume] in Capillary [id number] 14:41:52 Test Item Value Reference Range Interpretation Comments GLU (test code = GLU) 83 [facility] GroupGlucose [Mass/volume] in Capillary [id number] 14:41:52 Test Item Value Reference Range Interpretation Comments GLU (test code = GLU) 83 [facility] GroupGlucose [Mass/volume] in Capillary [id number] 14:41:52 Test Item Value Reference Range Interpretation Comments GLU (test code = GLU) 83 [facility] GroupChlamydia trachomatis+Neisseria gonorrhoeae DNA [Presence] in Cervix by RENAN with probe [id number] 01:43:00 Test Item Value Reference Range Interpretation Comments Chlamydia sp Ag [Presence] in CT not detected Specimen (test code = 40115-7) [id number] (test code = sbd8804) NG not detected [facility] GroupChlamydia trachomatis+Neisseria gonorrhoeae DNA [Presence] in Cervix by RENAN with probe [id number] 01:43:00 Test Item Value Reference Range Interpretation Comments Chlamydia sp Ag [Presence] in CT not detected Specimen (test code = 40788-8) [id number] (test code = qmb4771) NG not detected [facility] GroupGlucose [Mass/volume] in Capillary [id number] 13:46:30 Test Item Value Reference Range Interpretation Comments GLU (test code = GLU) 79 [facility] GroupGlucose [Mass/volume] in Capillary [id number] 13:46:30 Test Item Value Reference Range Interpretation Comments GLU (test code = GLU) 79 [facility] GroupGlucose [Mass/volume] in Capillary [id number] 13:46:30 Test Item Value Reference Range Interpretation Comments GLU (test code = GLU) 79 [facility] GroupUrinalysis macro (dipstick) panel - [id number] 13:29:55 Test Item Value Reference Range Interpretation Comments Leukocytes (test code = Leukocytes) Negative Nitrite (test code = Nitrite) negative Urobilinogen (test code = .2 Urobilinogen) Protein (test code = Protein) Negative pH (test code = pH) 6.5 Blood (test code = Blood) Negative Specific [place] (test code = 1.005 Specific [place]) Ketone (test code = Ketone) Negative Bilirubin (test code = Bilirubin) Negative Glucose (test code = Glucose) Negative Appearance (test code = Appearance) Clear Color (test code = Color) Yellow [facility] GroupUrinalysis macro (dipstick) panel - [id number] 13:29:55 Test Item Value Reference Range Interpretation Comments Leukocytes (test code = Leukocytes) Negative Nitrite (test code = Nitrite) negative Urobilinogen (test code = .2 Urobilinogen) Protein (test code = Protein) Negative pH (test code = pH) 6.5 Blood (test code = Blood) Negative Specific [place] (test code = 1.005 Specific [place]) Ketone (test code = Ketone) Negative Bilirubin (test code = Bilirubin) Negative Glucose (test code = Glucose) Negative Appearance (test code = Appearance) Clear Color (test code = Color) Yellow [facility] HospitalUrinalysis macro (dipstick) panel - [id number] 13:29:55 Test Item Value Reference Range Interpretation Comments Leukocytes (test code = Leukocytes) Negative Nitrite (test code = Nitrite) negative Urobilinogen (test code = .2 Urobilinogen) Protein (test code = Protein) Negative pH (test code = pH) 6.5 Blood (test code = Blood) Negative Specific [place] (test code = 1.005 Specific [place]) Ketone (test code = Ketone) Negative Bilirubin (test code = Bilirubin) Negative Glucose (test code = Glucose) Negative Appearance (test code = Appearance) Clear Color (test code = Color) Yellow [facility] HospitalHemoglobin A1c/Hemoglobin.total in [id number] 00:00:00 Test Item Value Reference Range Interpretation Comments Hemoglobin A1c [Mass/volume] in Blood 5.3 % 4.0-6.0 (test code = 72344-6) [facility] HospitalHemoglobin A1c/Hemoglobin.total in [id number] 00:00:00 Test Item Value Reference Range Interpretation Comments Hemoglobin A1c [Mass/volume] in Blood 5.3 % 4.0-6.0 (test code = 01763-3) [facility] HospitalMicroscopic observation [Identifier] in Vaginal fluid by Wet [id number] 14:08:11 Test Item Value Reference Range Interpretation Comments Clue Cells (test code = Clue Cells) negative WBCs (test code = WBCs) positive Trichomonads (test code = negative Trichomonads) Epithelial cells (test code = normal Epithelial cells) RBCs (test code = RBCs) negative [facility] HospitalMicroscopic observation [Identifier] in Vaginal fluid by Wet [id number] 14:08:11 Test Item Value Reference Range Interpretation Comments Clue Cells (test code = Clue Cells) negative WBCs (test code = WBCs) positive Trichomonads (test code = negative Trichomonads) Epithelial cells (test code = normal Epithelial cells) RBCs (test code = RBCs) negative [facility] HospitalUrinalysis macro (dipstick) panel - [id number] 13:40:00 Test Item Value Reference Range Interpretation Comments Leukocytes (test code = Leukocytes) Large Nitrite (test code = Nitrite) negative Urobilinogen (test code = .2 Urobilinogen) Protein (test code = Protein) Negative pH (test code = pH) 7.0 Blood (test code = Blood) Negative Specific [place] (test code = 1.010 Specific [place]) Ketone (test code = Ketone) Negative Bilirubin (test code = Bilirubin) Negative Glucose (test code = Glucose) Negative Appearance (test code = Appearance) Clear Color (test code = Color) Yellow [facility] HospitalUrinalysis macro (dipstick) panel - [id number] 13:40:00 Test Item Value Reference Range Interpretation Comments Leukocytes (test code = Leukocytes) Large Nitrite (test code = Nitrite) negative Urobilinogen (test code = .2 Urobilinogen) Protein (test code = Protein) Negative pH (test code = pH) 7.0 Blood (test code = Blood) Negative Specific [place] (test code = 1.010 Specific [place]) Ketone (test code = Ketone) Negative Bilirubin (test code = Bilirubin) Negative Glucose (test code = Glucose) Negative Appearance (test code = Appearance) Clear Color (test code = Color) Yellow [facility] HospitalCB W Auto Differential panel - [id number] 12:29:00 Test Item Value Reference Range Interpretation Comments white blood count (test code = 10.7 K/uL 4.0-11.5 white blood count) red blood count (test code = red 3.94 M/uL 3.80-5.20 blood count) hemoglobin (test code = 9.0 g/dL 10.5-15.7 L hemoglobin) hematocrit (test code = 30.1 % 34.0-50.0 L hematocrit) MCV [Entitic volume] (test code = 76.4 fL 86.0-100.0 L 25802-0) mean corpuscular hemoglobin (test 22.8 pg 26.2-33.4 L code = mean corpuscular hemoglobin) mean corpuscular HGB conc (test 29.9 g/dL 30.0-34.0 L code = mean corpuscular HGB conc) red cell distribution width (test 17.0 % 12.0-15.5 H code = red cell distribution width) platelet count (test code = 252 K/uL 165-450 platelet count) mean platelet volume (test code = 10.9 fL 9.4-12.6 mean platelet volume) Segmented neutrophils/100 75.7 % 44.4-80.1 leukocytes in Blood (test code = 11200-0) Immature granulocytes [#/volume] 0.11 K/uL 0.00-0.03 H in Blood (test code = 52553-1) lymphocyte% (test code = 11.5 % 10.0-50.0 lymphocyte%) mono % (test code = mono %) 10.1 % 3.6-12.0 eos % (test code = eos %) 1.3 % 0.0-5.4 basophil % (test code = basophil 0.4 % 0.1-1.2 %) Band form neutrophils [#/volume] 8.07 K/uL 1.56-6.13 H in Blood (test code = 91278-9) Lymphocytes [#/volume] in Specimen 1.23 K/uL 1.18-3.74 by Automated count (test code = 78917-0) mono # (test code = mono #) 1.08 K/uL 0.24-0.86 H eos # (test code = eos #) 0.14 K/uL 0.04-0.36 basophil # (test code = basophil 0.04 K/uL 0.01-0.08 #) NRBC% (test code = NRBC%) 0 /100 WBC 0-0.2 NRBC# (test code = NRBC#) 0 K/uL [facility] [Presence] in Serum or Plasma 2021-10-10 12:29:00 Test Item Value Reference Range Interpretation Comments Blood group antibody screen negative [Presence] in Serum or Plasma (test code = 890-4) [facility] GroupHemoglobin A1c/Hemoglobin.total in [id number] 00:00:00 Test Item Value Reference Range Interpretation Comments Hemoglobin A1c [Mass/volume] in Blood 5.4 % 4.0-6.0 (test code = 86279-8) [facility] GroupHIV [facility]+2 Ab [Presence] in [id number] 00:00:00HIV P24 AgHIV-1/2 [facility] HospitalReagin Ab [Presence] in Serum by RPR 2021-10-10 00:00:00 Test Item Value Reference Range Interpretation Comments Reagin Ab [Presence] in Serum by nonreactive nonreactive RPR (test code = 71319-6) [facility] Capillary [id number] 10:27:23 Test Item Value Reference Range Interpretation Comments GLU (test code = GLU) 95 [facility]Gl[facility] [Mass/volume] in Capillary [id number] 10:27:23 Test Item Value Reference Range Interpretation Comments GLU (test code = GLU) 95 [facility] HospitalUrinalysis macro (dipstick) panel - [id number] 10:25:35 Test Item Value Reference Range Interpretation Comments Leukocytes (test code = Leukocytes) Large Nitrite (test code = Nitrite) negative Urobilinogen (test code = 2 Urobilinogen) Protein (test code = Protein) 30 pH (test code = pH) 7.0 Blood (test code = Blood) Negative Specific [place] (test code = 1.020 Specific [place]) Ketone (test code = Ketone) Negative Bilirubin (test code = Bilirubin) Negative Glucose (test code = Glucose) Negative Appearance (test code = Appearance) Clear Color (test code = Color) Yellow [facility] HospitalUrinalysis macro (dipstick) panel - [id number] 10:25:35 Test Item Value Reference Range Interpretation Comments Leukocytes (test code = Leukocytes) Large Nitrite (test code = Nitrite) negative Urobilinogen (test code = 2 Urobilinogen) Protein (test code = Protein) 30 pH (test code = pH) 7.0 Blood (test code = Blood) Negative Specific [place] (test code = 1.020 Specific [place]) Ketone (test code = Ketone) Negative Bilirubin (test code = Bilirubin) Negative Glucose (test code = Glucose) Negative Appearance (test code = Appearance) Clear Color (test code = Color) Yellow [facility] GroupBacteria identified in Urine by [id number] 10:20:00 Test Item Value Reference Range Interpretation Comments Bacteria identified in no growth after 2 Urine by Culture (test days code = 630-4) [facility]Glucose [Mass/volume] in Capillary [id number] 09:52:00 Test Item Value Reference Range Interpretation Comments GLU (test code = GLU) 116 [facility] GroupGlucose [Mass/volume] in Capillary [id number] 09:52:00 Test Item Value Reference Range Interpretation Comments GLU (test code = GLU) 116 [facility] GroupUrinalysis macro (dipstick) panel - [id number] 09:51:00 Test Item Value Reference Range Interpretation Comments Leukocytes (test code = Leukocytes) Moderate Nitrite (test code = Nitrite) negative Urobilinogen (test code = 1 Urobilinogen) Protein (test code = Protein) Negative pH (test code = pH) 5.5 Blood (test code = Blood) Negative Specific [place] (test code = 1.020 Specific [place]) Ketone (test code = Ketone) Negative Bilirubin (test code = Bilirubin) Negative Glucose (test code = Glucose) Negative Appearance (test code = Appearance) Clear Color (test code = Color) Yellow [facility] GroupUrinalysis macro (dipstick) panel - [id number] 09:51:00 Test Item Value Reference Range Interpretation Comments Leukocytes (test code = Leukocytes) Moderate Nitrite (test code = Nitrite) negative Urobilinogen (test code = 1 Urobilinogen) Protein (test code = Protein) Negative pH (test code = pH) 5.5 Blood (test code = Blood) Negative Specific [place] (test code = 1.020 Specific [place]) Ketone (test code = Ketone) Negative Bilirubin (test code = Bilirubin) Negative Glucose (test code = Glucose) Negative Appearance (test code = Appearance) Clear Color (test code = Color) Yellow [facility] GroupHemoglobin A1c/Hemoglobin.total in [id number] 00:00:00 Test Item Value Reference Range Interpretation Comments Hemoglobin A1c [Mass/volume] in Blood 5.2 % 4.0-6.0 (test code = 33903-6) [facility] Groupaneuploidy risk, chromosome specific circulating cell free (ccf) DNA, maternal [id number] 00:00:00 Test Item Value Reference Range Interpretation Comments chromosome 13 aneuploidy (test code negative = chromosome 13 aneuploidy) chromosome 18 aneuploidy (test code negative = chromosome 18 aneuploidy) chromosome 21 aneuploidy (test code negative = chromosome 21 aneuploidy) sex chromosome analysis (test code = female sex chromosome analysis) [facility] HospitalUr[facility] macro (dipstick) panel - [id number] 10:57:29 Test Item Value Reference Range Interpretation Comments Leukocytes (test code = Small Leukocytes) Nitrite (test code = negative Nitrite) Urobilinogen (test code = .2 Urobilinogen) Protein (test code = 30 Protein) pH (test code = pH) 5.5 Blood (test code = Blood) Non-Hemolyzed: Trace Specific [place] (test 1.030 code = Specific [place]) Ketone (test code = Moderate Ketone) Bilirubin (test code = Small Bilirubin) Glucose (test code = Negative Glucose) Appearance (test code = Slightly Cloudy Appearance) Color (test code = Color) Yellow [facility] HospitalUrinalysis macro (dipstick) panel - [id number] 10:57:29 Test Item Value Reference Range Interpretation Comments Leukocytes (test code = Small Leukocytes) Nitrite (test code = negative Nitrite) Urobilinogen (test code = .2 Urobilinogen) Protein (test code = 30 Protein) pH (test code = pH) 5.5 Blood (test code = Blood) Non-Hemolyzed: Trace Specific [place] (test 1.030 code = Specific [place]) Ketone (test code = Moderate Ketone) Bilirubin (test code = Small Bilirubin) Glucose (test code = Negative Glucose) Appearance (test code = Slightly Cloudy Appearance) Color (test code = Color) Yellow [facility] HospitalUrinalysis macro (dipstick) panel - [id number] 10:57:29 Test Item Value Reference Range Interpretation Comments Leukocytes (test code = Small Leukocytes) Nitrite (test code = negative Nitrite) Urobilinogen (test code = .2 Urobilinogen) Protein (test code = 30 Protein) pH (test code = pH) 5.5 Blood (test code = Blood) Non-Hemolyzed: Trace Specific [place] (test 1.030 code = Specific [place]) Ketone (test code = Moderate Ketone) Bilirubin (test code = Small Bilirubin) Glucose (test code = Negative Glucose) Appearance (test code = Slightly Cloudy Appearance) Color (test code = Color) Yellow [facility] GroupGlucose [Mass/volume] in Capillary [id number] 10:46:47 Test Item Value Reference Range Interpretation Comments GLU (test code = GLU) 100 [facility] GroupGlucose [Mass/volume] in Capillary [id number] 10:46:47 Test Item Value Reference Range Interpretation Comments GLU (test code = GLU) 100 [facility] GroupGlucose [Mass/volume] in Capillary [id number] 10:46:47 Test Item Value Reference Range Interpretation Comments GLU (test code = GLU) 100 [facility] GroupGlucose [Mass/volume] in Capillary [id number] 10:27:42 Test Item Value Reference Range Interpretation Comments GLU (test code = GLU) 131 [facility] GroupGlucose [Mass/volume] in Capillary [id number] 10:27:42 Test Item Value Reference Range Interpretation Comments GLU (test code = GLU) 131 [facility] GroupGlucose [Mass/volume] in Capillary [id number] 10:27:42 Test Item Value Reference Range Interpretation Comments GLU (test code = GLU) 131 [facility]Urinalysis macro (dipstick) panel - [id number] 10:10:15 Test Item Value Reference Range Interpretation Comments Leukocytes (test code = Negative Leukocytes) Nitrite (test code = negative Nitrite) Urobilinogen (test code = .2 Urobilinogen) Protein (test code = 100 Protein) pH (test code = pH) 5.5 Blood (test code = Blood) Non-Hemolyzed: Trace Specific [place] (test 1.030 code = Specific [place]) Ketone (test code = Negative Ketone) Bilirubin (test code = Small Bilirubin) Glucose (test code = 100 Glucose) Appearance (test code = Clear Appearance) Color (test code = Color) Yellow [facility] GroupUrinalysis macro (dipstick) panel - [id number] 10:10:15 Test Item Value Reference Range Interpretation Comments Leukocytes (test code = Negative Leukocytes) Nitrite (test code = negative Nitrite) Urobilinogen (test code = .2 Urobilinogen) Protein (test code = 100 Protein) pH (test code = pH) 5.5 Blood (test code = Blood) Non-Hemolyzed: Trace Specific [place] (test 1.030 code = Specific [place]) Ketone (test code = Negative Ketone) Bilirubin (test code = Small Bilirubin) Glucose (test code = 100 Glucose) Appearance (test code = Clear Appearance) Color (test code = Color) Yellow [facility]Urinalysis macro (dipstick) panel - [id number] 10:10:15 Test Item Value Reference Range Interpretation Comments Leukocytes (test code = Negative Leukocytes) Nitrite (test code = negative Nitrite) Urobilinogen (test code = .2 Urobilinogen) Protein (test code = 100 Protein) pH (test code = pH) 5.5 Blood (test code = Blood) Non-Hemolyzed: Trace Specific [place] (test 1.030 code = Specific [place]) Ketone (test code = Negative Ketone) Bilirubin (test code = Small Bilirubin) Glucose (test code = 100 Glucose) Appearance (test code = Clear Appearance) Color (test code = Color) Yellow [facility] HospitalHemoglobin A1c [Mass/volume] in [id number] 00:00:00 Test Item Value Reference Range Interpretation Comments Hemoglobin A1c [Mass/volume] in Blood 5.2 % 4.0-6.0 (test code = 48744-8) [facility] HospitalHemoglobin A1c/Hemoglobin.total in [id number] 00:00:00 Test Item Value Reference Range Interpretation Comments Hemoglobin A1c [Mass/volume] in Blood 5.2 % 4.0-6.0 (test code = 65678-7) [facility] HospitalChromosome 13+18+21+X+Y aneuploidy in Blood by Molecular genetics method [id number] 00:00:00 Test Item Value Reference Range Interpretation Comments report summary (test code = see notes report summary) report note (test code = see notes report note) trisomy 13 age-based risk 05/21,389 (0.01%) text (test code = trisomy 13 age-based risk text) trisomy 13 risk score text n/a (test code = trisomy 13 risk score text) trisomy 13 result text (test no result code = trisomy 13 result text) trisomy 18 age-based risk 1/3,015 (0.03%) text (test code = trisomy 18 age-based risk text) trisomy 18 risk score text n/a (test code = trisomy 18 risk score text) trisomy 18 result text (test no result code = trisomy 18 result text) trisomy 21 age-based risk 05/13,140 (0.09%) text (test code = trisomy 21 age-based risk text) trisomy 21 risk score text n/a (test code = trisomy 21 risk score text) trisomy 21 result text (test no result code = trisomy 21 result text) monosomy X age-based risk 1568 (0.18%) text (test code = monosomy X age-based risk text) monosomy X risk score text n/a (test code = monosomy X risk score text) monosomy X result text (test no result code = monosomy X result text) triploidy result text (test no result code = triploidy result text) gender of fetus (test code = n/a gender of fetus) fraction (test code = 2.5% fraction) footnotes (test code = see notes footnotes) [facility]Hem[facility] A1c/Hemoglobin.total in [id number] 00:00:00 Test Item Value Reference Range Interpretation Comments Hemoglobin A1c [Mass/volume] in Blood 5.2 % 4.0-6.0 (test code = 97939-1) [facility] HospitalChromosome 13+18+21+X+Y aneuploidy in Blood by Molecular genetics method [id number] 00:00:00 Test Item Value Reference Range Interpretation Comments report summary (test code = see notes report summary) report note (test code = see notes report note) trisomy 13 age-based risk 05/21,389 (0.01%) text (test code = trisomy 13 age-based risk text) trisomy 13 risk score text n/a (test code = trisomy 13 risk score text) trisomy 13 result text (test no result code = trisomy 13 result text) trisomy 18 age-based risk 05/15,015 (0.03%) text (test code = trisomy 18 age-based risk text) trisomy 18 risk score text n/a (test code = trisomy 18 risk score text) trisomy 18 result text (test no result code = trisomy 18 result text) trisomy 21 age-based risk 05/13,140 (0.09%) text (test code = trisomy 21 age-based risk text) trisomy 21 risk score text n/a (test code = trisomy 21 risk score text) trisomy 21 result text (test no result code = trisomy 21 result text) monosomy X age-based risk 1568 (0.18%) text (test code = monosomy X age-based risk text) monosomy X risk score text n/a (test code = monosomy X risk score text) monosomy X result text (test no result code = monosomy X result text) triploidy result text (test no result code = triploidy result text) gender of fetus (test code = n/a gender of fetus) fraction (test code = 2.5% fraction) footnotes (test code = see notes footnotes) [facility]Gen[facility] in Specimen by Molecular genetics method [id number] 00:00:00 Test Item Value Reference Range Interpretation Comments report summary (test code = report positive A summary) cystic fibrosis (test code = cystic positive A fibrosis) alpha-thalassemia (test code = negative alpha-thalassemia) 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, cln3-related) (test code = aurora disease (neuronal ceroid lipofuscinosis, cln3-related)) beta-hemoglobinopathies (test code negative = beta-hemoglobinopathies) fofana syndrome (test code = fofana negative syndrome) missy disease (test code = negative missy disease) citrullinemia, type I (test code = negative citrullinemia, type I) duchenne/glez muscular dystrophy negative (test code = duchenne/glez muscular dystrophy) familial dysautonomia (test code = negative familial dysautonomia) fanconi anemia, group C (test code negative = fanconi anemia, group C) fragile X syndrome (test code = negative fragile X syndrome) galactosemia (test code = negative galactosemia) gaucher disease (test code = negative gaucher disease) glycogen storage disease, type 1A negative (test code = glycogen storage disease, type 1A) isovaleric acidemia (test code = negative isovaleric acidemia) medium chain acyl-coa dehydrogenase negative deficiency (test code = medium chain acyl-coa dehydrogenase deficiency) methylmalonic aciduria and negative homocystinuria, type cblc (test code = methylmalonic aciduria and homocystinuria, type cblc) mucolipidosis, type IV (test code = negative mucolipidosis, type IV) mucopolysaccharidosis, type I negative (hurler syndrome) (test code = mucopolysaccharidosis, type I (hurler syndrome)) elba-pick disease, types A/B negative (test code = elba-pick disease, types A/B) polycystic kidney disease, negative autosomal recessive (test code = polycystic kidney disease, autosomal recessive) 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 URINALYSIS W SPECIFIC [id number] 15:05:00 Test Item Value Reference Range Interpretation Comments POCT U SP GRAV (test code = . 1.005-1.025 A 3255) POCT PH U (test code = 3254) 6 mg/dl 5-8 POCT U LEUK EST (test code = 2+ Negative - Negative 3263) POCT U NIT (test code = 3262) Neg Negative - Negative POCT U PROT (test code = 3259) Trace Negative - Negative POCT U GLU (test code = 3256) Neg Negative - Negative POCT U KETONE (test code = 3258) Neg Negative - Negative POCT U UROBILI (test code = . 0.2-1 3260) POCT U BILI (test code = 3261) . Negative - Negative POCT U BLD (test code = 3257) Trace Negative - Negative POCT U COLOR (test code = 3266) POCT U APPEAR (test code = 3267) Lab Interpretation (test code = Abnormal 68734-2) [facility] HR GLUCOSE TOLERANCE [id number] 06:30:30 Test Item Value Reference Range Interpretation Comments GLUC 3 HR (test code = 3711659844) 140 mg/dL 70-110 H Lab Interpretation (test code = Abnormal 19532-2) [facility] HR GLUCOSE TOLERANCE [id number] 06:29:29 Test Item Value Reference Range Interpretation Comments GLUC 1 HR (test code = 2289718963) 197 mg/dL 120-170 H Lab Interpretation (test code = Abnormal 50777-1) [facility] HR GLUCOSE TOLERANCE [id number] 06:28:28 Test Item Value Reference Range Interpretation Comments GLUC 2 HR (test code = 6081703768) 170 mg/dL 70-120 H Lab Interpretation (test code = Abnormal 72298-1) [facility] [id number] 06:22:11 Test Item Value Reference Range Interpretation Comments GLU FASTNG (test code = 5967595160) 89 mg/dL 70-110 Lab Interpretation (test code = Normal 02063-8) [facility]
--- NOTE | 2022-10-23 02:35 | ER ---
Nurse's Notes [facility] Name: Kami Merchant Age: 22 yrs Sex: Female : 2000 Arrival Date: 10/23/2022 Time: 02:07 Bed 6 Private MD: Diagnosis: External hemorrhoids Presentation: 10/23 02:24 Chief complaint: Patient states: I have had hemorrhoids for a year now and i haven't kd3 gotten them check by anyone before but around midnight i went to the bathroom and now it really hurts a lot. Coronavirus screen: Vaccine status:. Ebola Screen: No symptoms or risks identified at this time. Initial Sepsis Screen: Does the patient meet any 2 criteria? No. Patient's initial sepsis screen is negative. Does the patient have a suspected source of infection? No. Patient's initial sepsis screen is negative. Risk Assessment: Do you want to hurt yourself or someone else? Patient reports no desire to harm self or others. Onset of symptoms was October 23, 2022. 02:24 Method Of Arrival: Ambulatory kd3 02:24 Acuity: PRITI 3 kd3 Triage Assessment: 02:25 General: Appears uncomfortable, Behavior is calm, cooperative. Pain: Complains of pain kd3 in anal area. Respiratory: Airway is patent Trachea midline Respiratory effort is even, unlabored, Respiratory pattern is regular, symmetrical. REVENUE SPECIALIST: 02:25 LMP 10/18/2022 kd3 Historical: - Allergies: 02:25 PENICILLINS; kd3 - Immunization history:: Adult Immunizations up to date. - Social history:: Smoking status: unknown. - Family history:: not pertinent. Screenin:41 [facility] ED Fall Risk Assessment (Adult) History of falling in the last 3 months, jb4 including since admission No falls in past 3 months (0 pts) Confusion or Disorientation No (0 pts) Score/Fall Risk Level 0 - 2 = Low Risk. Abuse screen: Denies threats or abuse. Nutritional screening: No deficits noted. Tuberculosis screening: No symptoms or risk factors identified. Assessment: 02:31 General: Appears in no apparent distress. uncomfortable, well groomed, well developed. pf1 General: Behavior is calm, cooperative, appropriate for age, quiet. Pain: Complains of pain in rectum from hemorrhoids. Neuro: No deficits noted. Level of Consciousness is awake, alert, obeys commands, Oriented to person, place, time, situation. Cardiovascular: No deficits noted. Capillary refill < 3 seconds Patient's skin is warm and dry. Respiratory: No deficits noted. Airway is patent Trachea midline Respiratory effort is even, unlabored, Respiratory pattern is regular, symmetrical. GI: Reports hemorrhoids. : No deficits noted. No signs and/or symptoms were reported regarding the genitourinary system. EENT: No deficits noted. No signs and/or symptoms were reported regarding the EENT system. Derm: No deficits noted. No signs and/or symptoms reported regarding the dermatologic system. Musculoskeletal: No deficits noted. No signs and/or symptoms reported regarding the musculoskeletal system. Vital Signs: 02:24 BP 161 / 80; Pulse 108; Resp 18; Temp 99.6(O); Pulse Ox 98% on R/A; Weight 104.78 kg; kd3 Height 5 ft. 7 in. ; Pain 8/10; 02:24 Body Mass Index 36.18 (104.78 kg, 170.18 cm) kd3 02:24 Pain Scale: Adult kd3 ED Course: 02:11 Patient arrived in ED. ja2 02:22 Karson Borges MD is Attending Physician. rt 02:25 Triage completed. kd3 02:25 Arm band placed on right wrist. kd3 02:34 Dae Ryan MD is Referral Physician. rt 02:41 Joby Deleon, RN is Primary Nurse. jb4 02:41 Patient has correct armband on for positive identification. Bed in low position. Call jb4 light in reach. Side rails up X 1. 02:41 No provider procedures requiring assistance completed. Patient did not have IV access jb4 during this emergency room visit. Administered Medications: 02:41 Drug: Ketorolac IM 15 mg Route: IM; Site: left gluteus; jb4 02:41 Follow up: Response: Medication administered at discharge. jb4 Medication: 10/22 02:40 VIS not applicable for this client. pf1 Outcome: 10/23 02:34 Discharge ordered by . rt 02:41 Discharged to home ambulatory. jb4 02:41 Condition: stable 02:41 Discharge instructions given to patient, Instructed on discharge instructions, follow up and referral plans. medication usage, Demonstrated understanding of instructions, follow-up care, medications, Prescriptions given X 1. 02:42 Patient left the ED. jb4 Signatures: Joby Deleon RN RN jb4 Tere Nicole Kyli RN RN kd3 Karson Borges MD MD rt Bren Felton RN RN pf1
--- NOTE | 2022-10-23 02:35 | EDPHYS ---
Physician Documentation [facility] Name: Kami Merchant Age: 22 yrs Sex: Female : 2000 Arrival Date: 10/23/2022 Time: 02:07 Bed 6 Private MD: ED Physician Karson Borges HPI: 10/23 04:33 This 22 yrs old Female presents to ER via Ambulatory with complaints of Hemorrhoids. rt 04:33 Patient presents to the ED with greater than 1 year of having hemorrhoids. She has rt never seen a physician for this. Patient does report constipation stating that sometimes she goes 4 to 5 days without having a bowel movement. She states that she is taking stool softeners, intermittently takes laxatives. States the pain is somewhat worsened tonight. Pain is aching nature, nonradiating, mild in severity, no other aggravating alleviating factors.. [employer]: 02:25 LMP 10/18/2022 kd3 Historical: - Allergies: 02:25 PENICILLINS; kd3 - Immunization history:: Adult Immunizations up to date. - Social history:: Smoking status: unknown. - Family history:: not pertinent. ROS: 04:33 Constitutional: Negative for fever, chills, and weight loss, Cardiovascular: Negative rt for chest pain, palpitations, and edema, Respiratory: Negative for shortness of breath, cough, wheezing, and pleuritic chest pain, Skin: Negative for injury, rash, and discoloration, Neuro: Negative for headache, weakness, numbness, tingling, and seizure, Psych: Negative for depression, anxiety, suicide ideation, homicidal ideation, and hallucinations. 04:33 Abdomen/GI: Positive for Hemorrhoids, rectal pain, Negative for abdominal pain, nausea and vomiting. 04:33 : Exam: 04:33 Constitutional: This is a well developed, well nourished patient who is awake, alert, rt and in no acute distress. Head/Face: Normocephalic, atraumatic. Chest/axilla: Normal chest wall appearance and motion. Nontender with no deformity. No lesions are appreciated. Cardiovascular: Regular rate and rhythm with a normal S1 and S2. No gallops, murmurs, or rubs. Normal PMI, no JVD. No pulse deficits. Respiratory: Lungs have equal breath sounds bilaterally, clear to auscultation and percussion. No rales, rhonchi or wheezes noted. No increased work of breathing, no retractions or nasal flaring. Skin: Warm, dry with normal turgor. Normal color with no rashes, no lesions, and no evidence of cellulitis. MS/ Extremity: Pulses equal, no cyanosis. Neurovascular intact. Full, normal range of motion. Neuro: Awake and alert, GCS 15, oriented to person, place, time, and situation. Cranial nerves II-XII grossly intact. Motor strength 5/5 in all extremities. Sensory grossly intact. Cerebellar exam normal. Normal gait. Psych: Awake, alert, with orientation to person, place and time. Behavior, mood, and affect are within normal limits. 04:33 Abdomen/GI: Nonthrombosed external hemorrhoid is present, no abdominal tenderness, distention. Vital Signs: 02:24 BP 161 / 80; Pulse 108; Resp 18; Temp 99.6(O); Pulse Ox 98% on R/A; Weight 104.78 kg; kd3 Height 5 ft. 7 in. ; Pain 8/10; 02:24 Body Mass Index 36.18 (104.78 kg, 170.18 cm) kd3 02:24 Pain Scale: Adult kd3 MDM: 02:26 Patient medically screened. rt 04:33 Differential diagnosis: hemorrhoids, fissure. Data reviewed: vital signs, nurses notes. rt Test considered but Not performed: CT: No abdominal tenderness, benign-appearing hemorrhoid, CT scan not indicated. Counseling: I had a detailed discussion with the patient and/or guardian regarding: the historical points, exam findings, and any diagnostic results supporting the discharge/admit diagnosis, the need for outpatient follow up. Administered Medications: 02:41 Drug: Ketorolac IM 15 mg Route: IM; Site: left gluteus; jb4 02:41 Follow up: Response: Medication administered at discharge. [email or web address] Disposition Summary: 10/23/22 02:34 Discharge Ordered Location: Home rt Problem: an ongoing problem rt Symptoms: are unchanged rt Condition: Stable rt Diagnosis - External hemorrhoids rt Followup: rt - With: Dae Ryan MD - When: 2 - 3 days - Reason: Discharge Instructions: - Discharge Summary Sheet rt - Hemorrhoids rt Forms: - Medication Reconciliation Form rt - Thank You Letter rt - Antibiotic Education rt - Prescription Opioid Use rt Prescriptions: - Anusol-HC 25 mg Rectal Suppository - insert 1 suppository by RECTAL route every 12 hours As needed; 30 suppository; rt Refills: 0, Product Selection Permitted Signatures: Joby Deleon, RN RN jb4 Genie Melendrez RN RN kd3 Karson Borges MD MD rt
[2022-10-23] MEDS ORDERED: KETOROLAC 30 MG/ML INJ ONE (02:46)
[2022-10-23 03:44] VITALS: BP 161/80; TEMP 99.6; O2SAT 98
== END 2022-10-23 02:42 | disposition home or self-care (01) ==
LOC: ER 02:07
DX: K64.4 Residual hemorrhoidal skin tags (principal); Z88.0 Allergy status to penicillin
CPT/HCPCS: 96372; 99284